=== PATIENT | female | born 1995 | race Caucasian/White ===

== ENCOUNTER 2023-01-31 12:50 | Outpatient (CLI) | payer BC, OTHER, SELFPAY ==
--- NOTE | 2023-01-31 13:00 | CRLHL7_ITS ---
For Patients: As a result of the Century Cures Act, medical imaging exams and procedure reports are released immediately into your electronic medical record. You may view this report before your referring provider. If you have questions, please contact your health care provider. INDICATION: First trimester scan, establish dates. COMPARISON: None. TECHNIQUE: Real-time le-scale imaging of the pelvis was performed. FINDINGS: Sonographic imaging demonstrates a single living intrauterine gestation. The embryo demonstrates a regular cardiac rate measuring 110 beats per minute. The embryo`s crown-rump length measurement of 0.5 cm corresponds to a gestational age of 6 weeks 1 day with a sonographic due date of 09/25/2023. There is a normal-appearing yolk sac. There are no gross abnormalities noted within the embryo at this early state of development. The gestational sac has a normal appearance. There is a right fundal perigestational hemorrhage measuring 1.7 x 0.5 x 0.9 cm. The amount of fluid within the sac appears appropriate for gestational age. The cervix is closed. The myometrium appears normal. The ovaries are of normal size. Corpus luteal cyst right ovary. There are no suspicious fluid collections noted in the cul-de-sac. IMPRESSION: Single living intrauterine with sonographic gestational age 6 weeks 1 day and sonographic due date 09/25/2023. Subchorionic hemorrhage in the right fundal region measuring 1.7 x 0.5 x 0.9 cm. Dictated by Veto Ch MD @ 02/01/2023 10:19:06 AM (Electronically Signed)
== END 2023-01-31 12:51 | disposition home or self-care (01) ==
PROVIDERS: Visit Provider Advanced Practice Midwife
DX: Z34.91 Encounter for supervision of normal pregnancy, unspecified, first trimester (principal); O20.9 Hemorrhage in early pregnancy, unspecified; Z3A.01 Less than 8 weeks gestation of pregnancy
CPT/HCPCS: 76817; 86703; 86803; 86850; 86900; 86901; 87086; 87340; 87491; 87591

== ENCOUNTER 2023-01-31 14:21 | Outpatient (CLI) | payer BC, OTHER, SELFPAY ==
[2023-01-31 19:09] LABS: Chlamydia DNA Amplified* NOT DETECTED (No Detected); GC DNA Amplified* NOT DETECTED (No Detected)
== END 2023-01-31 14:22 | disposition home or self-care (01) ==
PROVIDERS: Visit Provider Advanced Practice Midwife
DX: Z34.91 Encounter for supervision of normal pregnancy, unspecified, first trimester (principal); O20.9 Hemorrhage in early pregnancy, unspecified; Z3A.01 Less than 8 weeks gestation of pregnancy
CPT/HCPCS: 86592; 86703; 86762; 86787; 86803; 86850; 86900; 86901; 87086; 87340; 87491; 87591

== ENCOUNTER 2023-02-13 13:50 | Outpatient (CLI) | payer BC, OTHER, SELFPAY ==
--- NOTE | 2023-02-13 14:00 | CRLHL7_ITS ---
For Patients: As a result of the Century Cures Act, medical imaging exams and procedure reports are released immediately into your electronic medical record. You may view this report before your referring provider. If you have questions, please contact your health care provider. INDICATION: Follow up viability COMPARISON: 01/31/2023 TECHNIQUE: Real-time le-scale imaging of the pelvis was performed. FINDINGS: Sonographic imaging demonstrates a single living intrauterine gestation. The embryo demonstrates a regular cardiac rate measuring 165 beats per minute. The embryo`s crown-rump length measurement of 1.6 cm corresponds to a gestational age of 8 weeks 0 days with a sonographic due date of 09/25/2023. There is a normal-appearing yolk sac. There are no gross abnormalities noted within the embryo at this early state of development. The gestational sac has a normal appearance. There is no evidence of a perigestational hemorrhage. The amount of fluid within the sac appears appropriate for gestational age. The cervix is closed. The myometrium appears normal. The ovaries are of normal size. There are no suspicious fluid collections noted in the cul-de-sac. IMPRESSION: Normal first trimester OB ultrasound exam. Gestational age calculated at 8 weeks 0 days with a sonographic due date of 09/25/2023. Dictated by Veto Ch MD @ 02/14/2023 8:36:57 AM (Electronically Signed)
== END 2023-02-13 13:51 | disposition home or self-care (01) ==
PROVIDERS: Visit Provider Advanced Practice Midwife
DX: Z34.91 Encounter for supervision of normal pregnancy, unspecified, first trimester (principal); Z3A.08 8 weeks gestation of pregnancy
CPT/HCPCS: 76817

== ENCOUNTER 2023-05-04 12:52 | Outpatient (CLI) | payer BC, OTHER, SELFPAY ==
--- NOTE | 2023-05-04 13:00 | CRLHL7_ITS ---
For Patients: As a result of the Century Cures Act, medical imaging exams and procedure reports are released immediately into your electronic medical record. You may view this report before your referring provider. If you have questions, please contact your health care provider. INDICATION: Evaluate anatomy. COMPARISON: 02/13/2023, 01/31/2023 TECHNIQUE: Real time le scale imaging of the fetus was performed as well as color Doppler analysis of the umbilical vessels. FINDINGS: Sonographic imaging demonstrates a single living intrauterine gestation. Fetus demonstrates a regular cardiac rate of 157 beats per minute. Fetus has a variable position. The placenta lies fundal without evidence of placenta previa. The edge of the placenta is located 10.6 cm from the internal cervical OS. Amniotic fluid volume appears normal. Single deepest vertical pocket: 6.0 cm. The cervix is closed and measures 4.1 cm in length. The composite ultrasound gestational age is calculated at 20 weeks 2 days with an estimated sonographic due date of 09/19/2023. The estimated weight is 344 grams which lies at the 90th %. The following biometric measurements were obtained: Biparietal diameter: 4.8 cm/20 weeks 3 days 88th% Head circumference: 17.3 cm/19 weeks 6 days 64th% Abdominal circumference: 15.3 cm/20 weeks 4 days 80th% Femur length: 3.2 cm/20 weeks 1 day 68th% The HC/AC ratio measures: 1.13 range (1.07-1.25) On anatomic survey, there is a normal appearance of the cerebral ventricles, cavum septi pellucidi, cisterna magna and cerebellum. The nose, lips, and facial profile appear normal. The cervical, thoracic and lumbar spine are well visualized and appear normal. There is a normal four-chamber heart view and the left and right ventricular outflow tracts appear normal. The diaphragm and stomach appear normal. The kidneys and bladder also appear normal. There is a normal three-vessel cord and cord insertion site. The four extremities appear normal. IMPRESSION: Normal OB ultrasound exam with concordance of clinical and sonographic dating. No intrinsic abnormalities noted on anatomic survey. Dictated by Veto Ch MD @ 05/04/2023 2:24:03 PM (Electronically Signed)
== END 2023-05-04 12:53 | disposition home or self-care (01) ==
LOC: US 12:53
PROVIDERS: Visit Provider Advanced Practice Midwife
DX: Z34.92 Encounter for supervision of normal pregnancy, unspecified, second trimester (principal); Z3A.20 20 weeks gestation of pregnancy
CPT/HCPCS: 76805

== ENCOUNTER 2023-06-29 14:00 | Outpatient (CLI) | payer OTHER, BC, SELFPAY | END 2023-06-29 14:01 | disposition home or self-care (01) | LOC: NFLDREF 07-05 16:07 | PROVIDERS: Visit Provider Advanced Practice Midwife | DX: Z34.92 Encounter for supervision of normal pregnancy, unspecified, second trimester (principal); Z3A.27 27 weeks gestation of pregnancy | CPT/HCPCS: 86592 ==

== ENCOUNTER 2023-08-31 14:40 | Outpatient (CLI) | payer OTHER, SELFPAY | END 2023-08-31 14:41 | disposition home or self-care (01) | LOC: NFLDREF 09-05 12:13 | PROVIDERS: Visit Provider Advanced Practice Midwife | DX: Z34.83 Encounter for supervision of other normal pregnancy, third trimester (principal) | CPT/HCPCS: 87081; 87653 ==

== ENCOUNTER 2023-09-04 07:17 | Outpatient (CLI) | payer OTHER, SELFPAY ==
--- NOTE | 2023-09-04 07:15 | US_ITS ---
Patient: XIANG NOE Facility:?[facility] Patient ID:?[id number] Site Patient ID:?[id number]. Site :?1995 Study:?US-OB Pelvis OB F/U GROWTH-09/04/2023 7:57:59 AM Ordering Physician:?MONICA ROBLERO CNM Final Report: INDICATION: Third trimester scan, evaluate growth. Measuring small for dates. COMPARISON: 05/04/2023 TECHNIQUE: Real time le scale imaging of the fetus was performed. FINDINGS: Sonographic imaging demonstrates a single living intrauterine gestation. Fetus demonstrates a regular cardiac rate of 150 beats per minute. Fetus has a vertex position. The placenta lies right posterior. Amniotic fluid volume appears normal and there is a single deepest vertical pocket: 7.2 cm. The estimated weight is 3237gm which lies at the 71st %. On the prior OB ultrasound exam dated 05/04/2023 the estimated weight was at the 90th%. BPD 72nd percentile. HC is 69th percentile. AC is 64th percentile. FL 79th percentile. The HC/AC ratio measures 1.02 range (0.90-1.05). IMPRESSION: Sonographic gestational age 37 weeks 6 days and sonographic due date of 09/19/2023. Sonographic age is 6 days ahead of the clinical age. Estimated weight 71st percentile. Abdominal circumference 64th percentile. Dictated by Veto Ch MD @ 09/04/2023 10:46:34 AM Signed by:?Veto Ch MD @09/04/2023 10:46:34 AM (Electronic Signature)
== END 2023-09-04 07:18 | disposition home or self-care (01) ==
LOC: US 07:18
PROVIDERS: Visit Provider Advanced Practice Midwife
DX: O36.5930 Maternal care for other known or suspected poor fetal growth, third trimester, not applicable or unspecified (principal); Z3A.37 37 weeks gestation of pregnancy
CPT/HCPCS: 76816

== ENCOUNTER 2023-09-19 18:12 | Outpatient (CLI) | payer OTHER, SELFPAY ==
[2023-09-19 18:37] VITALS: BP 117/73; PULSE 74; TEMP 36.6
[2023-09-19 18:38] VITALS: PULSE 71; O2SAT 100
[2023-09-19 18:56] VITALS: BP 116/71; PULSE 78
--- NOTE | 2023-09-19 19:23 | PC.OBNST ---
NST Note NST Note Start: 09/19/23 18:19 Freq: ONCE Status: Active Protocol: Document 09/19/23 19:05 MMT (Rec: 09/19/23 19:22 MMT [id number]) NST Note 2 Para (# of births) 0 EDC 09/25/23 Gestational Age In Weeks & Days 39 Weeks & 1 Days Other Complaints Patient came into be evaluated due to having some lower extremity edema that she has not had during her , and a headache. The headache did get better when she drank fluids as she did not have much to drink throughout the day. Reactive Yes Appropriate for Gestational Age Yes ALEJANDRO Huffman RN Date 09/19/23 Reactive Yes Appropriate for Gestational Age Yes ALEJANDRO Corbett RN Date 09/19/23 OB NST charge Yes Complete NST Note via Write Note Yes The provider's electronic signature indicates the NST is reactive/appropriate for gestational age. *Note to provider: If an addendum is required, open the patient's chart and click on the note under the Nurse/Allied Health tab.
== END 2023-09-19 19:05 | disposition home or self-care (01) ==
LOC: OB OUT 18:12 → OB 18:13
PROVIDERS: Visit Provider Advanced Practice Midwife
DX: O26.893 Other specified pregnancy related conditions, third trimester (principal); R60.0 Localized edema; Z3A.39 39 weeks gestation of pregnancy
CPT/HCPCS: 59025; G0463

== ENCOUNTER 2023-10-02 15:52 | Outpatient (CLI) | payer OTHER, SELFPAY ==
--- NOTE | 2023-10-02 16:00 | US_ITS ---
Patient: XIANG NOE Facility:?[facility] Patient ID:?[id number] Site Patient ID:?[id number]. Site :?1995 Study:?US-OB Pelvis BPP-10/02/2023 5:12:01 PM Ordering Physician:?Db Gomez Final Report: INDICATION: Post dates COMPARISON: 09/04/2023 TECHNIQUE: Real time le scale imaging of the fetus was performed. Without non-stress testing. FINDINGS: Sonographic imaging demonstrates a single living intrauterine gestation. Fetus demonstrates a regular cardiac rate of 137 beats per minute. Fetus has a vertex position. The amniotic fluid volume appears normal and there is a single deepest pocket measurement of 5.8 cm. The fetus was active. Absent breathing movements. There was normal flexion and extension of the trunk and extremities. IMPRESSION: Biophysical profile 11/23. Dictated by Veto Ch MD @ 10/03/2023 12:12:40 PM Signed by:?Veto Ch MD @10/03/2023 12:12:40 PM (Electronic Signature)
== END 2023-10-02 15:53 | disposition home or self-care (01) ==
LOC: US 15:53
PROVIDERS: Visit Provider Advanced Practice Midwife
DX: O48.0 Post-term pregnancy (principal)
CPT/HCPCS: 76819

== ENCOUNTER 2023-10-06 07:30 | Inpatient (IN) | payer OTHER, SELFPAY ==
[2023-10-06] VITALS (26 sets, daily range): BP systolic 92–137; BP diastolic 63–114; PULSE 76–110; RESP 14–18; TEMP 36.1–37.2; O2SAT 97–100; BMI 28.5
--- NOTE | 2023-10-06 | XR_ITS ---
Patient: XIANG NOE Facility:?[facility] Patient ID:?[id number] Site Patient ID:?[id number]. Site :?1995 Study:?XRay-Abdomen 1V-10/06/2023 9:15:38 AM Ordering Physician:BRAYDEN Final Report: INDICATION: Rule-out instrument check foreign body TECHNIQUE: Three images of the abdomen and pelvis The upper abdomen is not completely imaged. No radiopaque foreign body is seen. Dictated by Rosemary Serna MD @ 10/06/2023 11:12:26 AM Signed by:?Rosemary Serna MD @10/06/2023 11:12:26 AM (Electronic Signature)
[2023-10-06] MEDS: LACTATED RINGERS 1000 ML 1,000 ML IV ×2 (07:35→08:19)
[2023-10-06] MEDS: TERBUTALINE 1 MG/ML INJ 0.25 MG SUBCUT (07:40)
[2023-10-06] MEDS: CEFAZOLIN 2 GM in 0.9 % SODIUM CHLORIDE Mini-bag 100 ML IVPB ×3 (08:21→20:50)
--- NOTE | 2023-10-06 08:31 | P.ANES_ITS ---
Anesthesia Charges Start Date/Time Anesthesia Start Date: 10/06/23 Anesthesia Start Time: 07:40 Stop Date/Time Anesthesia Stop Date: 10/06/23 Anesthesia Stop Time: 09:17 Summary Emergency: CERTIFIED NURSE PRACTITIONER
[2023-10-06 08:35] LABS: Hematocrit 33.4 % (33.0-51.0); Hemoglobin* 10.9 gm/dL (12.0-16.0); Mean Corpuscular HGB Conc 33 gm/dL (32-36); Mean Corpuscular Hemoglobin 31 pg (26-34); Mean Corpuscular Volume 94 fL (80-100); Platelet Count* 176 K/uL (140-440); Red Blood Count 3.56 m/uL (4.00-5.20); White Blood Count* 15.09 K/uL (4.50-11.00)
[2023-10-06 08:36] LABS: Slide Review Reflex No
[2023-10-06] MEDS: HYDROmorphone 0.5 mg/0.5 ml inj IVP (09:29)
--- NOTE | 2023-10-06 09:33 | W.PM.NB ---
Nerve Block Nerve Block Time Seen by Provider: 09:12 Date Seen: 10/06/23 Type of block requested by surgeon for post-operative analgesia: TAP Side: bilateral Time out performed: Yes Verification of patient name: Yes Verification of date of : Yes Name of person performing procedure: Jeffuc Continuous monitoring Was continuous monitoring of O2 sat, B/P, protection chief industrial plant, recorded every 15 minutes?: Yes Procedure Checklist: sterile prep, needles and gloves Ultrasound guided. Images saved: Yes Medications given in 5ml increments after negative aspiration: Marcaine %: 0.25 mL: 30 Needle gauge: 21 and Exparel mL: 10 Needle gauge: 21 Patient tolerated procedure well: Yes Block Charges Block Charge (with Pro Fee): TAP Bilateral Use of Ultrasound Machine for Block: Yes- US Guidance/pain block
[2023-10-06] MEDS: fentaNYL 100 MCG/2 ML inj 50 MCG IVP ×2 (09:47→10:00)
--- NOTE | 2023-10-06 10:00 | PM.OBHPLI ---
OB - H&P: HPI Labor/Induction History of Present Illness Time Seen by Provider: 07:34 Date Seen: 10/06/23 Chief Complaint: The patient is a 28 year old 2 para 0020 at 41.4 weeks gestation by ultrasound, who presents with to triage with contraction. This is a midwifery patient, Chief complaint: OB Outpatient Narrative: Daria Benson is a 28 year old female Specific Issues/Plans Gender? H&P done by Cydney Gomez CNM on 09/04/23 IOL scheduled 10/09/23 at 42.0 weeks 1. Varicella equivocal. Needs vaccine PP. 2. Hx of anxiety, not diagnosed -denies any hx of therapy or medication 3. Hx of asthma, exercise induced. Last inhaler use 2-3 years ago 4. Nausea and vomiting. Zofran 5. SI joint pain PT referral sent 6. Concern for mole on left breast- derm referral sent 7. Transverse lie at 35 weeks, resolved at 37 wks 8. Measuring small for dates- growth US 71% dexamethasone allergy - hives COVID: declines Flu: declined TDAP: 08/03/2023 32wk Mental Health: 08/03/2023 Meds Home Medications and Allergies Home Medications Medication Instructions Recorded Confirmed Type collagen 1 tab PO DAILY PRN 01/31/23 10/06/23 History vits no.126-ferrous fum 1 tab PO DAILY 01/31/23 10/06/23 History 28 mg iron-folic acid 800 mcg tablet (Classic ) docusate sodium 100 mg capsule 100 mg PO QDAY 04/13/23 10/06/23 History (Colace) Allergies Allergy/AdvReac Type Severity Reaction Status Date / Time dexamethasone Allergy Mild Hives Verified 10/04/23 13:30 OB - H&P: Exam Physical Exam: Vital signs: Temp Pulse Resp BP Pulse Ox O2 Del Method 97.0 F L 85 16 126/77 99 Room Air 10/06/23 09:15 10/06/23 09:50 10/06/23 09:50 10/06/23 09:50 10/06/23 09:50 10/06/23 09:50 OB - Results Labs Labs: Short CBC 10/06/23 Range/Units 08:20 WBC 15.09 H (4.50-11.00) K/uL Hgb 10.9 L (12.0-16.0) gm/dL Hct 33.4 (33.0-51.0) % Plt Count 176 (140-440) K/uL
[2023-10-06] MEDS: ACETAMINOPHEN 500 MG TABLET 1000 MG PO ×2 (10:38→18:06)
[2023-10-06] MEDS: OXYCODONE 5 MG TABLET PO ×3 (11:04→18:49)
[2023-10-06] MEDS: LACTATED RINGERS 1000 ML 1,000 ML 125 ML IV (15:14)
[2023-10-06] MEDS: KETOROLAC 30 MG/ML inj IVP ×2 (15:16→20:50)
--- NOTE | 2023-10-06 15:18 | W.PM.LDBA ---
Subjective History of Present Illness Time Seen by Provider: 07:30 Narrative: Patient is being admitted to Labor and Delivery for emergency section. She is a 28 year old at 41.4 weeks gestation. Her full history and physical was dictated by Cydney Gomez CNM on 09/04/23. Please see this for details. Patient presented to triage due to contractions. She is a midwifery patient but I was called to bedside due to prolonged deceleration at 0734. Per strip review, Daria was placed on the monitor at 0648. She had a variable deceleration at to 100 bpm at 0658. She had cervical examination by RN at 0715 and was 2/70/-3, intact membrane. She had another deceleration to the 60s at 0729 that last two minutes and recovered into the 150s at 0731, then had a prolonged deceleration into the 90s at 0732. I was called to bedside at 0734. Patient was on her hands and knees at that time. RNs actively working to establish IV access to give her LR bolus. I performed a cervical exam and patient was 3 cm dilated. Fetus had response to scalp stimulation the broad heart rate back into the 130s-160s. Unfortunately, return of heart rate to baseline was not sustained and heart rate returned to the 90s. At this point, heart rate deceleration had been occurring for approximately 7 minutes. An emergency was called at 0735. Notably, patient was having tachysystolic contractions with low amplitude since arrival. On my palpation of her abdomen, patient was having tetanic contractions. Terbutaline 0.2 mg was given IM at 0740. I discussed with patient and her spouse that state of heart rate. Given this and her gestational age/clinical picture, I was concerned for placental abruption. Unfortunately, she will have to undergo general anesthesia if heart rate continues to be in the 90s in the OR. Verbal consent obtained. Will proceed to OR for emergent delivery. Specific Issues/Plans Gender? H&P done by Cydney Gomez CNM on 09/04/23 IOL scheduled 10/09/23 at 42.0 weeks 1. Varicella equivocal. Needs vaccine PP. 2. Hx of anxiety, not diagnosed -denies any hx of therapy or medication 3. Hx of asthma, exercise induced. Last inhaler use 2-3 years ago 4. Nausea and vomiting. Zofran 5. SI joint pain PT referral sent 6. Concern for mole on left breast- derm referral sent 7. Transverse lie at 35 weeks, resolved at 37 wks 8. Measuring small for dates- growth US 71% dexamethasone allergy - hives COVID: declines Flu: declined TDAP: 08/03/2023 32wk Mental Health: 08/03/2023 OB Exam Physical Exam Vital signs: Temp Pulse Resp BP Pulse Ox O2 Del Method 98.1 F 82 16 122/76 97 Room Air 10/06/23 12:20 10/06/23 12:20 10/06/23 12:20 10/06/23 12:20 10/06/23 12:20 10/06/23 10:07
--- NOTE | 2023-10-06 16:21 | P.OBPRC_ITS ---
Procedure Time Seen by Provider: 07:30 Date of procedure: 10/06/23 Procedure Done: Global Will [facility] bill your pro fee for this procedure?: Yes Procedure Description: DELIVERY BY SECTION Date of Service: 10/06/23 Summary: Zenaida rodriguez called at 0735 for terminal deceleration; suspected placental abruption OR room time 0441 Heart rate was initially in the 90s when placed on the monitor in the OR. Hong cath was placed that heart rate shot up to the 180s but rapidly started falling again. Additionally, a big gush was noted to be coming from the vaginal during hong cath placement. Decision made for general anesthesia. Incision time: 747 Delivery time: 748 Findings: Normal uterus, bilateral ovaries and left fallopian tube, right fallopian tube with small paratubal cyst. Nuchal cord x 1. Large amount of blood followed with placental detachment 8,9 weight 3770 g. Primary Indication: Terminal deceleration, suspected placental abruption Procedures: Primary Lower uterine transverse section Specimens Removed: Placenta Surgeon: Melody Avelar MD Flour Blender Helper: Hesham Flanagan RN Anesthesia: General, TAP Report: Prophylactic antibiotic, 2 g of Ancef was given before patient was taken to OR. After arrival to the operating room patient was placed in the supine position with left lateral tilt after administration of general anesthesia. Laparotomy A pfannenstiel incision was made through the anterior abdominal wall with #10 scalpel approximately 2 cm above the pubic symphysis. The incision was extended sharply with the #10 scalpel through the subcutaneous tissue to the level of fascia. The fascia was entered sharply with a #10 scalpel (Pfannenstiel) in the midline and extended in semi-elliptical fashion bluntly with digits. The rectus muscles were in the midline bluntly with digits. The peritoneum was then entered bluntly. The peritoneal incision was then extended superiorly and inferiorly under direct visualization with care being taken to avoid bladder and bowel. No adhesions were noted. The peritoneal incision was enlarged bluntly by lateral traction from the surgeon's and assistant front office manager's hand. Jhony retractor was inserted into the abdomen. Delivery A bladder flap was not developed as bladder is low off the lower uterine segment. A low transverse hysterotomy was made then with #10 scalpel and extended laterally and cephalad with fingers in a low transverse fashion with Manu Reveles technique with care being taken to avoid injury to the fetus. The amniotic cavity (membrane) was then entered with spontaneous rupture of membrane, and the amniotic fluid was noted to be clear, fetus was delivered cephalic. Nuchal cord x 1 noted. With delivery of the baby, no extension was noted. Placenta was delivered spontaneously with steady traction on cord and manual separation of placenta from uterine wall. Large amount of blood followed with placenta detachment. Closure Uterine cavity was cleaned after placental delivery with lap sponge x 2. The hysterotomy was closed in two layers with stitches using 0 vicryl with continuous locking stitches and 0 monocryl in a continuous non locking manner. One [id number] was placed at the left hysterotomy angle, 2 [id number] were placed in the middle of the hysterotomy. Hemostasis was achieved as needed with electrocautery. The ovaries/tubes/uterine surface were evaluated. They were found to be as noted above. Jhony retractor removed and hemostasis was confirmed again. Fascia was closed with running stitches using 0 Vicryl. X-ray of the abdomen was performed at this time to assure nothing foreign was retained intra-abdominally as initial count was not completed. Preliminary abdominal x-ray showed nothing foreign intra-abdominally after fascial closure. Subcutaneous layer was irrigated. Hemostasis was checked for and found to be adequate. The subcutaneous layer was closed with running 2-0 Vicryl sutures. The skin was closed with 4-0 Vicryl subcuticular sutures . The incision was cleaned and covered with Steri-Strips and silver dressing due to splash prep. Procedure was considered terminated at this time. Sponge and sharps count were correct. Intraoperative Complications: None QBL: 295 cc UOP: 150 cc Uterotonics: 40 units of Pitocin, 1 g of TXA, 0.2 mg of Methergine for intermittent atony Disposition: The patient tolerated the procedure well. She was recovered in Obstetric PACU for close monitoring in stable condition, with a contracted uterus and normal transvaginal bleeding. The was sent to mother?s bedside. A segment of the cord was obtained for umbilical cord gases. Cord blood gas was not available at time of operative note entered. The placenta was sent to pathology due to emergency delivery and suspected abruption. Debrief with OR team performed and specimen reviewed at the conclusion of the procedure. Patient will get 24 hour of Ancef 2g Q6H due splash prep.
[2023-10-06] MEDS: SENNOSIDES/DOCUSATE TABLET 2 TAB PO (20:49)
[2023-10-07] MEDS: OXYCODONE 5 MG TABLET PO ×2 (00:01→06:06)
[2023-10-07] MEDS: ACETAMINOPHEN 500 MG TABLET 1000 MG PO ×4 (00:03→18:07)
[2023-10-07 00:50] VITALS: BP 96/53; PULSE 73; RESP 16; TEMP 36.6; O2SAT 98
[2023-10-07] MEDS: KETOROLAC 30 MG/ML inj IVP ×3 (02:52→15:04)
[2023-10-07] MEDS: CEFAZOLIN 2 GM in 0.9 % SODIUM CHLORIDE Mini-bag 100 ML IVPB ×2 (02:52→09:02)
[2023-10-07 03:05] VITALS: BP 105/65; PULSE 75; RESP 20; TEMP 37.4; O2SAT 97
[2023-10-07 06:24] LABS: Hemoglobin* 9.7 gm/dL (12.0-16.0)
[2023-10-07 07:45] VITALS: BP 103/67; PULSE 75; RESP 16; TEMP 36.6; O2SAT 96
[2023-10-07] MEDS: DOCUSATE SODIUM 100 MG CAPSULE PO (09:03)
[2023-10-07] MEDS: SENNOSIDES/DOCUSATE TABLET 2 TAB PO ×2 (09:03→21:05)
[2023-10-07] MEDS: FERROUS SULFATE 325 MG TABLET PO (09:03)
--- NOTE | 2023-10-07 11:47 | PM.OBPNVD1 ---
OB - PN:Subj Subjective Time Seen by Provider: 09:30 Date Seen: 10/07/23 Narrative: Overnight patient had no complaints. Her pain is well controlled on oral pain medications. She is tolerating a regular diet. She has passed flatus. She is ambulating without difficulty. Lochia is scant. She is urinating without hong. Patient denies chest pain, SOB, n/v, headache, RUQ pain, vision changes, dizziness. She has chronic constipation. Advised her MiraLax and Colace while she is taking a narcotic or on p.o. iron. Last dose of antibiotic given. OB - PN: Obj Exam Physical Exam: Vital signs: Temp Pulse Resp BP Pulse Ox O2 Del Method 97.9 F 75 16 103/67 96 Room Air 10/07/23 07:45 10/07/23 07:45 10/07/23 07:45 10/07/23 07:45 10/07/23 07:45 10/07/23 07:45 Narrative: Physical exam: General: No acute distress Psych: Alert and oriented x4, full affect HEENT: Normocephalic, atraumatic Neck: No cervical adenopathy, no thyromegaly Heart: Regular rate and rhythm, no murmur rub or gallop Lungs: Clear to auscultation bilaterally Abdomen: Gravid. soft, no tenderness, rebound, or guarding, 2 cm below umbilicus. Incision: Dressing in place and intact. No surrounding erythema Skin: No lesions or rashes Lower extremities: No edema or erythema Pelvic exam: scant vaginal bleeding Urinary Catheter Management: Urethral: Cath placed during this visit: yes, but has since been removed by the nurse Reason for continuing: decision to DC catheter Insertion date: 10/06/23 Removal date: 10/07/23 Removal time: 03:14 OB - PN: Obj Data Labs Labs: Laboratory Results - last 24 hr 10/07/23 06:06 Hgb 9.7 L OB - PN: A/P Delivery Assessment and Plan (1) Status post delivery: Status: Acute Assessment and Plan: Postoperative/post delivery Review: - Admitted for: Contractions - Surgical procedure: Emergency section - Skin incision: Pfannenstiel - Closure: sutures - Intraoperative Complications: none - s/p 24 hours of antibiotics Acute blood loss anemia - Quantitative blood loss: 295 mL - Urine output: 2.62 cc/kg/hr - Preop/pre delivery H/H: 12.4 - Postop/post delivery H/H: 10.9 --> 9.7 - PO iron ordered everyother day Postoperative care: - Diet: Advance as tolerated - Fluid: Encourage oral intake - Activity: Encourage ambulation and incentive spirometry - Pain: Acetaminophen, Ibuprofen, and oxycodone - DVT prophylaxis: SCDs and TEDs when not ambulating. Discharge Planning - Follow up in 7 days for incision check and bandage removal in clinic - Follow Up: follow-up at 2 weeks and 6 weeks in clinic Baby's Status - Fetus: 8, 9, 3770 g, male - Location: bedside Dispo: Patient is POD#1. Anticipate discharge POD#2.
[2023-10-07] MEDS: SIMETHICONE 80 MG TAB.CHEW PO (15:10)
[2023-10-07 15:24] LABS: Rapid Plasma Reagin (RPR) Non Reactive (Non Reactive)
[2023-10-07 17:40] VITALS: BP 115/75; PULSE 81; RESP 16; TEMP 36.2; O2SAT 99
[2023-10-07] MEDS: IBUPROFEN 600 MG TABLET PO (21:05)
[2023-10-08 00:50] VITALS: TEMP 36.8
[2023-10-08] MEDS: ACETAMINOPHEN 500 MG TABLET 1000 MG PO ×2 (00:50→07:16)
[2023-10-08 01:17] VITALS: BP 115/76; PULSE 85; RESP 16; TEMP 36.8; O2SAT 97
[2023-10-08] MEDS: IBUPROFEN 600 MG TABLET PO ×2 (03:50→09:22)
[2023-10-08 07:19] VITALS: PULSE 72; RESP 12; TEMP 36.6; O2SAT 97
--- NOTE | 2023-10-08 07:39 | PM.OBDSVD1 ---
DS: Providers Provider Date Seen: 10/08/23 Date of admission: 10/06/23 07:30 Primary care physician: Not a Local Provider Admitting Clinician: Melody Avelar MD Attending Physician on discharge: Melody Avelar MD Date of Discharge: 10/08/23 DS: Diagnosis Discharge Diagnosis (1) Lactating mother: Status: Acute (2) care following delivery: Status: Acute (3) Anemia, : Status: Acute Exam Narrative: Exam Narrative: GENERAL APPEARANCE:? normal affect, alert, no distress? MOOD:? appropriate? CHEST:? clear to auscultation and percussion? HEART:? regular rate and rhythm? ABDOMEN:? soft, non-tender the uterine fundus is U/2 and is appropriate for the stage of recovery.?Incision dressing is clean dry and intact. ? EXTREMITIES:? normal and no edema? Const: Vital Signs, click to edit/add: Vital Signs - 24 hr 10/07/23 07:45 10/07/23 17:40 10/08/23 00:50 Temperature 97.9 F 97.2 F L 98.2 F Pulse Rate [Right Pulse Oximeter] 75 81 Respiratory Rate 16 16 Blood Pressure [Le ft Arm] 103/67 115/75 Pulse Oximetry 96 99 Oxygen Delivery Me thod Room Air Room Air 10/08/23 01:17 10/08/23 07:19 Temperature 98.2 F 97.9 F Pulse Rate [Right Pulse Oximeter] 85 72 Respiratory Rate 16 12 Blood Pressure [Le ft Arm] 115/76 Pulse Oximetry 97 97 Oxygen Delivery Me thod Room Air Room Air Documenting provider has reviewed patient's vital signs: yes OB - DS: Summary Hospital Course Hospital Course: The patient is a 28 year old G 2 P 1 at 41.4 weeks gestation that was admitted to the Center on 10/06/23 for active labor with an prolonged decelerations. An emergent was called shortly after presenting to the unit due to intolerance. General anesthesia was used due to the urgency needed. She delivered a viable male . She is breast feeding. the patient has done well. Her pain is well controlled with current medications.? She has no new complaints.? Urinary output is adequate and she is voiding without difficulty.? Has a good appetite, is tolerating a general diet, is passing flatus, and has not had a bowel movement.? Has scant amount of rubra lochia.? She is ambulating well. She is occasionally tearful when talking about her delivery experince. Encouraged her to reach out to talk to us if she has questions but denies any at this time. Peripartum Data delivery method: Primary C/S; Non-Labored Procedures: Procedures Operation Date: 10/06/23 07:45 Actual Procedure Side Surgeon p Section Not Applicable Melody Janis Avelar MD complications: none Gender: Male Discharge Plan: Home Status at Discharge Functional status at discharge: independent ambulation Overall status at discharge: patient is progressing back to baseline Time Spent with Patient Time attestation: Total time spent providing and/or coordinating discharge services: Discharge Plan Discharge Disposition: Home, Self-Care Date of Admission: 10/06/23 07:30 Attending Provider on Discharge: Thuy Salgado Primary Care Provider: Provider,Not a Local Condition: Stable Anticipated Discharge Date/Time: 10/08/23 10:00 Discharge Medications: New ferrous sulfate 325 mg (65 mg iron) Tablet 325 mg PO Q OTHER DAY Qty: 60 0RF ibuprofen 600 mg Tablet 600 mg PO Q6H PRN (Reason: Pain) Qty: 90 0RF oxycodone 5 mg Tablet 5 - 10 mg PO Q4H PRN (Reason: Pain) Qty: 7 0RF Continued Classic 28 mg iron- 800 mcg tablet 1 tab PO DAILY collagen 1 tab PO DAILY PRN docusate sodium [Colace] 100 mg capsule 100 mg PO QDAY Qty: 90 0RF Rx Instructions: Take 1-2 tablets daily as needed for constipation. Discharge Orders: Discharge Order (Routine); Ordered 10/08/23 Ordered By: Thuy Salgado Patient Education: OB /Breast Feeding Additional Instructions: Discharge instructions were reviewed with the patient including signs and symptoms of infection and home going medications? ?? Activity restrictions:? Lifting Restrictions: 20 pounds for 6 weeks? No high-impact or core exercises for 6 weeks.?? No not submerge incision under water X 2 weeks?? Nothing vaginally for 6 weeks: no tampons or intercourse? Do not drive while taking narcotic pain medication(s)? Off Work or School for 8 weeks? ?? Symptoms to report to doctor:? -Bleeding that saturates more than one pad per hour? -Passing clots larger than the size of a golf ball? -Pain not relieved by prescribed medication? -Fever above 100.4 degrees Fahrenheit? -A foul vaginal odor? -Difficulty in emotions, mood and functions? -Thoughts of hurting yourself and/or ? -Painful, reddened area in your breast? -Any drainage, redness or tenderness in your IV/epidural site? -Severe headache that doesn't improve after taking medications? -Changes in vision, including temporary loss of vision, blurred vision, and/or light sensitivity? -Upper abdominal pain (usually under ribs on the right side)? -Decrease in urination or painful, frequent urinating? -Chest pain? -Shortness of breath? -Tenderness or pain with redness and/swelling in the calf(s) of your leg? Follow up visits:?? 1. 1 week visit:? incision check.? 2. 2-week visit: discuss feeding/care concerns, review control options and screen for anxiety/depression.? 3. 6-week visit for an annual exam.? ?? consultation services are available to all mothers and babies for the first year after delivery.? To make an appointment, please call [phone].? Follow Up Appointments: [facility] [Provider Group] Provider,Not a Local [Primary Care Provider] - Forms: MyHealth Info Instructions
[2023-10-08] MEDS: SENNOSIDES/DOCUSATE TABLET 2 TAB PO (09:03)
[2023-10-08] MEDS: FERROUS SULFATE 325 MG TABLET PO (09:03)
[2023-10-08] MEDS: DOCUSATE SODIUM 100 MG CAPSULE PO (09:03)
--- NOTE | 2023-10-08 10:16 | PM.ANPOST ---
Post Anesthesia Note Post Anesthesia Note Patient seen: Inpatient Respiratory Status: adequate Cardiovascular Status: adequate Mental Status: baseline Pain: adequate Temp: baseline Anesthetic awareness: N/A Complications: none Follow care: none
== END 2023-10-08 12:24 | disposition home or self-care (01) | DRG 786 ==
LOC: OB OUT 08:01 → OB 08:01
PROVIDERS: Advanced Practice Midwife; Admitting Provider Obstetrics & Gynecology; Visit Provider Obstetrics & Gynecology
PROC: 10D00Z1 Extraction of Products of Conception, Low, Open Approach (ICD-10-PCS; CPT 59514; principal; 2023-10-06 07:30)
DX: O76 Abnormality in fetal heart rate and rhythm complicating labor and delivery (principal); O45.93 Premature separation of placenta, unspecified, third trimester; D62 Acute posthemorrhagic anemia; Z3A.41 41 weeks gestation of pregnancy; Z37.0 Single live birth; G89.18 Other acute postprocedural pain; O48.0 Post-term pregnancy; O90.81 Anemia of the puerperium
CPT/HCPCS: 01961; 36415; 64488; 74018; 76942; 85018; 85027; 86592; 86850; 86900; 86901; 88307; 99140; A9270; C9290; J0665; J0690; J1170; J1885; J2210; J2405; J2590; J3010; J3105; J7120

== ENCOUNTER 2025-05-21 12:06 | Outpatient (CLI) | payer OTHER, SELFPAY | END 2025-05-21 12:07 | disposition home or self-care (01) | PROVIDERS: Visit Provider Advanced Practice Midwife | DX: N96 Recurrent pregnancy loss (principal) | CPT/HCPCS: 84439; 84443; 84481; 85520; 85525; 85598; 85610; 85613; 85670; 85730; 86146; 86147 ==